=== PATIENT | female | born 1985 | race African-American/Black ===

== ENCOUNTER → 2025-03-03 | Outpatient (CLI) | payer BC ==
[2025-03-03 10:07] LABS: BASOPHILS % 1.2 % (0.0-2.0); EOSINOPHILS % 2.9 % (0.0-5.0); HEMATOCRIT. 38.0 % (36.0-48.0); HEMOGLOBIN. 13.3 g/dL (12.0-16.0); LYMPHOCYTES % 46.4 % (20.0-50.0); MEAN PLATELET VOLUME 9.5 fl (7.4-10.4); MONOCYTES % 6.0 % (2.0-8.0); NEUTROPHILS % 43.5 % (40.0-76.0); PLATELET 243 x1000/uL (130-400); RED BLOOD CELL COUNT 4.44 mill/uL (4.2-5.4); RED CELL DISTRIBUTION WIDTH 13.4 % (11.6-14.6)
[2025-03-03 10:35] LABS: CREATININE 0.7 mg/dL (0.6-1.0)
[2025-03-03 10:36] LABS: TRIGLYCERIDE 59 mg/dL (0-150); UREA NITROGEN BLOOD 8 mg/dL (9-23)
[2025-03-03 10:37] LABS: ASPARTATE AMINOTRANSFERASE 18 IU/L (<34); LDL CHOLESTEROL 142 mg/dL (5-100)
[2025-03-03 10:38] LABS: BILIRUBIN TOTAL 0.7 mg/dL (0.1-1.0); PROTEIN TOTAL 7.2 g/dL (6.0-8.3)
[2025-03-03 10:47] LABS: B-HCG QUANTITATIVE < 1 mIU/mL (<6)
[2025-03-03 11:34] LABS: FOLIC ACID (FOLATE) SERUM 10.65 ng/mL (>5.38)
[2025-03-03 11:35] LABS: VITAMIN B12 SERUM 503 pg/mL (211-911)
== END | disposition home or self-care (01) ==
LOC: LAB 09:36
PROVIDERS: ATTEND Internal Medicine Geriatric Medicine
DX: E78.00 Pure hypercholesterolemia, unspecified (principal); N97.9 Female infertility, unspecified; Z00.01 Encounter for general adult medical examination with abnormal findings
CPT/HCPCS: 36415; 80053; 80061; 80074; 82306; 82607; 82670; 82728; 82746; 83001; 83002; 83036; 84146; 84443; 84702; 85025; 86592